=== PATIENT | female | born 1980 | race Caucasian/White ===

== ENCOUNTER 2020-06-05 13:34 | Outpatient (CLI) | payer OTHER, SELFPAY ==
--- NOTE | 2020-06-05 15:00 | NEURO_ITS ---
Impression: # Complains of 4th and 5th finger numbness bilaterally. # Normal nerve conduction study # No Carpal Tunnel Syndrome or ulnar neuropathy. # Normal needle/EMG exam. Nerve Conduction Studies Anti Sensory Summary Table Stim Site NR Peak (ms) P-T Amp (?V) Site1 Site2 Delta-P (ms) Dist (cm) Tres (m/s) Left Median Anti Sensory (2-3nd Digit) Wrist 2.7 84.9 Wrist 2-3nd Digit 2.7 14.0 52 Wrist 2.8 74.6 Wrist 2-3nd Digit 2.7 14.0 52 Right Median Anti Sensory (2-3nd Digit) Wrist 2.7 68.2 Wrist 2-3nd Digit 2.7 14.0 52 Wrist 2.6 37.6 Wrist 2-3nd Digit 2.7 14.0 52 Left Radial Anti Sensory (Base 1st Digit) Wrist 1.8 34.1 Wrist Base 1st Digit 1.8 0.0 Right Radial Anti Sensory (Base 1st Digit) Wrist 2.1 28.2 Wrist Base 1st Digit 2.1 0.0 Left Ulnar Anti Sensory (5th Digit) Wrist 2.1 78.9 Wrist 5th Digit 2.1 14.0 67 Right Ulnar Anti Sensory (5th Digit) Wrist 2.0 77.0 Wrist 5th Digit 2.0 14.0 70 Motor Summary Table Stim Site NR Onset (ms) O-P Amp (mV) Site1 Site2 Delta-0 (ms) Dist (cm) Tres (m/s) Left Median Motor (Abd Poll Brev) Wrist 2.4 10.2 Elbow Wrist 4.2 26.0 62 Elbow 6.6 4.3 Right Median Motor (Abd Poll Brev) Wrist 2.8 3.1 Elbow Wrist 4.5 28.0 62 Elbow 7.3 2.6 Left Ulnar Motor (Abd Dig Minimi) Wrist 2.0 6.8 A Elbow Wrist 4.4 29.0 66 A Elbow 6.4 6.6 Right Ulnar Motor (Abd Dig Minimi) Wrist 2.0 6.2 A Elbow Wrist 4.1 28.0 68 A Elbow 6.1 5.7 F Wave Studies NR F-Lat (ms) L-R F-Lat (ms) Left Median (Mrkrs) (Abd Poll Brev) 24.28 0.81 Right Median (Mrkrs) (Abd Poll Brev) 25.09 0.81 Left Ulnar (Mrkrs) (Abd Dig Min) 25.33 0.54 Right Ulnar (Mrkrs) (Abd Dig Min) 24.80 0.54 EMG Side Muscle Nerve Root Ins Act Fibs Amp Dur Recrt Comment Right 1stDorInt Ulnar C8-T1 Nml Nml Nml Nml Nml Right Ext Indicis Radial (Post Int) C7-8 Nml Nml Nml Nml Nml Right Ext Digitorum Radial (Post Int) C7-8 Nml Nml Nml Nml Nml Right BrachioRad Radial C5-6 Nml Nml Nml Nml Nml Right PronatorTeres Median C6-7 Nml Nml Nml Nml Nml Right Abd Poll Brev Median C8-T1 Nml Nml Nml Nml Nml Left 1stDorInt Ulnar C8-T1 Nml Nml Nml Nml Nml Left Ext Indicis Radial (Post Int) C7-8 Nml Nml Nml Nml Nml Left Ext Digitorum Radial (Post Int) C7-8 Nml Nml Nml Nml Nml Left BrachioRad Radial C5-6 Nml Nml Nml Nml Nml Left PronatorTeres Median C6-7 Nml Nml Nml Nml Nml Left Abd Poll Brev Median C8-T1 Nml Nml Nml Nml Nml MTDD
== END 2020-06-05 13:35 | disposition home or self-care (01) ==
LOC: ANHNEURO 13:35
PROVIDERS: PCP Family Medicine; Visit Provider Physician Assistant
DX: R20.0 Anesthesia of skin (principal)
CPT/HCPCS: 95886; 95911

== ENCOUNTER → 2021-03-08 08:17 | Outpatient (CLI) | payer OTHER, SELFPAY ==
[2021-03-08 20:23] LABS: SARS-CoV-2 RNA PCR Negative
[2021-03-10 00:38] LABS: Influenza A QL RT-PCR Negative (Negative); Influenza B QL RT-PCR Negative (Negative)
== END ==
PROVIDERS: PCP Family Medicine; Visit Provider Physician Assistant
DX: R05.9 Cough, unspecified (principal); R68.89 Other general symptoms and signs; Z20.822 Contact with and (suspected) exposure to COVID-19
CPT/HCPCS: 87502; C9803; U0003; U0005

== ENCOUNTER 2023-04-15 16:24 | Outpatient (CLI) | payer OTHER, SELFPAY ==
[2023-04-15 17:23] LABS: Influenza A QL RT-PCR Negative (Negative); Influenza B QL RT-PCR Negative (Negative); RSV RNA, RT-PCR Negative (Negative); SARS-CoV-2 RNA PCR Negative (Negative)
== END 2023-04-15 16:25 | disposition home or self-care (01) ==
LOC: ANHLAB 16:26
PROVIDERS: PCP Family Medicine; Visit Provider Family Medicine
DX: J06.9 Acute upper respiratory infection, unspecified (principal); Z20.822 Contact with and (suspected) exposure to COVID-19
CPT/HCPCS: 87637

== ENCOUNTER 2023-12-13 18:39 | Emergency (ER) | payer OTHER, SELFPAY ==
--- NOTE | ~2023-12-13 | XR_ITS ---
[id number] Ordering provider: Dipika Mejias APRN History: . fall, rib pain, posterior braline . Comparison: None. FINDINGS: BONES: No acute right rib fracture or fracture of the visualized osseous structures. LUNGS: No effusions or infiltrates. No pneumothorax. SOFT TISSUES: Normal. IMPRESSION: No right rib fracture . No acute cardiopulmonary pathology. Reviewed, dictated and finalized at location A.
[2023-12-13 18:56] VITALS: BP 139/92; PULSE 87; RESP 16; TEMP 36.6; O2SAT 99
--- NOTE | 2023-12-13 19:02 | ED_ITS ---
HPI - Fall General Chief Complaint: Back Pain/Injury Stated Complaint: right side pain Time Seen by Provider: 12/13/23 18:41 Source: patient Mode of arrival: ambulatory Limitations: no limitations History of Present Illness HPI Narrative: Patient is a 43-year-old female who presents with right side pain after falling in bathtub yesterday at 3:00 p.m.. Patient states pain is lateral side and radiates under right breast and behind right scapula. Denies any shortness of breath or bruising. Denies hitting her head on follow-up. Has applied ice and taken 800 mg of ibuprofen twice since occurrence. Related Data Allergies Allergy/AdvReac Type Severity Reaction Status Date / Time codeine AdvReac Unknown NAUSEA Verified 04/21/23 16:21 hydrocodone AdvReac Unknown NAUSEA Verified 04/21/23 16:21 Review of Systems Review of Systems: All systems reviewed & are unremarkable except as noted in HPI and below Constitutional: Constitutional: Denies body ache(s), Denies chills, Denies fatigue, Denies fever(s), Denies headache(s), Denies malaise and Denies weakness Eyes: Eyes: Denies blurry vision, Denies irritation and Denies loss of vision ENT: Denies otalgia, Denies headache(s), Denies nasal discharge, Denies sinus pain and Denies sore throat Cardiovascular: Cardiovascular: Denies chest pain, Denies irregular heart rhythm and Denies dyspnea Respiratory: Respiratory: Denies dyspnea Gastrointestinal: Gastrointestinal: Denies abdominal pain, Denies melena, Denies hematochezia, Denies diarrhea, Denies nausea and Denies vomiting Musculoskeletal: Musculoskeletal: Reports back pain, Denies myalgias and Denies arthralgias Integumentary/Breasts: Skin/Breast: Denies pruritus and Denies rash Neurologic: Denies headache(s), Denies loss of vision and Denies weakness Psychiatric: Psychiatric: Reports no additional psychiatric complaints Endocrine: Endocrine: Denies fatigue PMFSH Past Medical History Medical History Acrochordon Bug bite Enlarged lymph node Lipoma Numbness and tingling Wellness examination Surgical History Surgical History S/P hysterectomy Social History Social History Social History: Years smoked: 9 Smoking status: Former smoker Tobacco type: cigarettes and e-cigarettes/vaping Second hand tobacco smoke exposure: Yes Smoking end date: 12/16/13 Additional smoking assessment comments: Pt still vapes. Alcohol intake: current Drinks per week: 4 Alcohol use details: socially Substance use: never Substance use type: does not use Living arrangements: with family Occupation/Education: occupation Gender identity (if verbalized by the patient): Female Sexual Orientation (if Verbalized by the Patient): Straight or Heterosexual Comments At time of signature, agree with nursing past medical, surgical, social and family history. There is no relevant family history pertinent to the presenting complaint. Exam Const: General: cooperative, healthy appearing, comfortable, no acute distress and well nourished Nutritional Appearance: well nourished Orientati on/consciousness: patient oriented x3 Limitations: no limitations HENMT: Head: normal to inspection, normocephalic and atraumatic Ears: hearing grossly normal bilaterally and external ears normal Face/Nose/Sinus: Normal external nose present, normal facial exam and face symmetric Face and sinus: normal facial exam and face symmetric Mouth: Yes lip normal Eyes: General: appearance normal, both eyes and all related structures Alignment and Position: alignment normal and position normal Periorbital: periorbital findings normal Eyelids: eyelids normal Pupils: Equal, round and reactive pupils present EOM: EOMs intact bilaterally Neck: Neck: normal visual inspection, full ROM and supple Chest: Chest palpation & inspection: normal inspection of the chest and tenderness rib right mid-axillary line involving the 4th rib, involving the 5th rib and involving the 6th rib Resp: Effort & Inspection: normal respiratory effort and able to speak in complete sentences Auscultation: clear to auscultation bilaterally Cardio: Rate: regular rate Rhythm: regular rhythm Heart sounds: S1 normal heart sound present and S2 normal heart sound present GI: Inspection: normal to inspection Skin: General skin exam: normal color and no rashes or lesions noted Neuro: General: patient oriented x3 and moves all extremities Cranial nerves: Yes Equal, round and reactive pupils present Speech: normal speech Gait exam (Neuro): Normal gait present Extrem: General: normal to inspection, full ROM and no edema Psych: Appearance: grossly normal and well kempt Mental Status: mental status grossly normal Speech and movement: Normal speech and movement present Affect: normal affect Attitude: cooperative Thought process: Normal thought process present Course Course Emergency Course: Patient is aware of diagnosis, understands and agrees to treatment plan. Anticipatory guidance given. Patient agrees to follow-up as directed and is aware of reasons to seek care at the emergency department. Portions of this record may have been created with voice recognition software Level of Care: Express Care Visit Vital Signs Vital signs: Vital Signs Temperature 36.6 C 12/13/23 18:56 Pulse Rate 87 12/13/23 18:56 Respiratory Rate 16 12/13/23 18:56 Blood Pressure 139/92 H 12/13/23 18:56 Pulse Oximetry 99 12/13/23 18:56 Temperature 36.6 C 12/13/23 18:56 Pulse Rate 87 12/13/23 18:56 Respiratory Rate 16 12/13/23 18:56 Blood Pressure 139/92 H 12/13/23 18:56 Pulse Oximetry 99 12/13/23 18:56 Reviewed MDM - Fall MDM Narrative Medical decision making narrative: Exam findings show no acute concerns or changes; patient is non-toxic appearing and is in no distress.? Patient is appropriate for outpatient treatment and follow-up. Discharge instructions reviewed with patient, as well as provided in writing per nursing staff. The instructions also include specific and strict return/GO TO THE ER as well as f/u information. All questions have been answered, and the patient deny any further questions with discharge and discharge plan. Differential Diagnosis Differential diagnosis: Likely syncope and other (Rib fracture, contusion, muscle strain) Medical Records Attestation: I reviewed the patient's medical records. Imaging Data Radiologist's impression: [id number] Ordering provider: Dipika Mejias APRN History: . fall, rib pain, posterior braline . Comparison: None. FINDINGS: BONES: No acute right rib fracture or fracture of the visualized osseous structures. LUNGS: No effusions or infiltrates. No pneumothorax. SOFT TISSUES: Normal. IMPRESSION: No right rib fracture . No acute cardiopulmonary pathology. Discharge Plan Discharge Clinical Impression: Contusion of rib Qualifiers: Encounter type: initial encounter Laterality: right Qualified Code(s): S20.211A - Contusion of right front wall of thorax, initial encounter Patient Disposition: Home, Self-Care Condition: Stable Instructions: Rib Contusion (ED) Additional Instructions: X-ray shows no fractures Use muscle relaxers as needed, they will make you sleepy so do not drive Apply lidocaine patches 12 hours on and 12 hours off For pain, you may take: Tylenol 650-1000mg by mouth every 4-6 hours. Do not exceed 4000mg in 24 hours. Advil (Ibuprofen) 600 mg by mouth every 6 hours. Do not exceed 2400mg in 24 hours. 8 AM: Tylenol 11 AM: Ibuprofen 2 PM: Tylenol 5 PM: Ibuprofen 8 PM: Tylenol 11 PM: Ibuprofen 2 AM: Tylenol 5 AM: Ibuprofen Go to the ER if you have worsening pain or difficulty breathing Prescriptions: New baclofen 10 mg tablet 10 mg PO TID 5 Days Qty: 15 0RF lidocaine 5 % adhesive patch,medicated 1 patch topical DAILY Qty: 15 0RF Rx Instructions: leave on most painful area for up to 12 hrs Follow-up/Referrals: Genaro Hodges MD [Primary Care Provider] - 3 Days Stand Alone Forms: Work/School Release IP Time of Disposition: 20:01
== END 2023-12-13 20:07 | disposition home or self-care (01) ==
PROVIDERS: Emergency Provider Nurse Practitioner Family; PCP Family Medicine
DX: S20.211A Contusion of right front wall of thorax, initial encounter (principal); W18.2XXA Fall in (into) shower or empty bathtub, initial encounter
CPT/HCPCS: 71101; 99213; G0463

== ENCOUNTER 2024-02-02 09:15 | Outpatient (CLI) | payer OTHER, SELFPAY ==
--- NOTE | ~2024-02-02 | XR_ITS ---
Left Knee Technique: AP and lateral views were obtained. Clinical History: Pain Findings: No fracture or dislocation is seen. Osseous alignment is anatomic. Joint spaces are preserv ed without degenerative or erosive change. Soft tissues are unremarkable. No joint effusion is seen. Impression: Unremarkable left knee radiographs. Reviewed, dictated and finalized at [facility]. INAL DEFENSE ATTORNEY Impression: Unremarkable left knee radiographs.
--- NOTE | ~2024-02-02 | XR_ITS ---
XR shoulder LT min 2V 02/02/2024 09:42 INDICATION: Left shoulder pain PROCEDURE: 4 views left shoulder COMPARISON: 02/11/2005 FINDINGS: Fracture, dislocation or subluxation is not identified. The soft tissues appear within norm al limits. No foreign bodies are identified. IMPRESSION: 1: NO ACUTE BONE OR JOINT ABNORMALITY IDENTIFIED. Reviewed, dictated and finalized at location B. INE OPERATOR SLITTER TECHNICIAN
== END 2024-02-02 09:16 | disposition home or self-care (01) ==
PROVIDERS: PCP Family Medicine; Visit Provider Family Medicine
DX: M25.512 Pain in left shoulder (principal); M25.562 Pain in left knee
CPT/HCPCS: 73030; 73560

== ENCOUNTER 2024-04-19 09:04 | Outpatient (CLI) | payer OTHER, SELFPAY ==
--- NOTE | ~2024-04-19 | XR_ITS ---
XR chest 2V Ordering provider: Genaro Hodges MD History: 43 years Female with . R06.00 - Dyspnea, unspecified . Comparison: March 04, 2024 FINDINGS: MEDIASTINUM: The cardiac silhouette is not enlarged. LUNGS: No infiltrates, effusions or pneumothorax. OTHER: No free air under the diaphragm. IMPRESSION: No acute cardiopulmonary pathology. Reviewed, dictated and finalized at location A. PRESIDENT
--- OUTSIDE RECORDS SUMMARY | 2024-04-19 09:38 | XMS_ITS | Clinical Summary ---
Author Organization [facility] Address [address] [place] [id number] Care Team Providers Care Microsoft Dynamics Consultant Name Role Phone Unknown, Notinfile Primary Care Provider Unavail able Allergies No known active allergies Medications meloxicam (MOBIC) 15 mg tablet Take 15 mg by mouth daily Active Active Problems Problem Noted Date Diagnosed Date Papanicolaou smear of cervix with atypical squamous cells cannot exclude high grade squamous intraepithelial lesion (ASC-H) 04/29/2011 Abnormal cervical Papanicolaou smear 04/16/2011 Surgical History Surgery Date Site/Laterality Comments US ABDOMEN COMPLETE W LIVER DOPPLER (C) 04/13/2018 R ight HYSTERECTOMY CHOLECYSTECTOMY Medical History Medical History Date Comments Known health problems: none Family History Medical History Relation Name Comments Arthritis Father Diabetes Father Gout Father Arthritis Mother Relation Name Status Comments Father Mother Social History Tobacco Use Types Packs/Day Years Used Date Smoking Tobacco: Every Day Vaping Comments Unknown Sex and Gender Information Value Date Recorded Sex Assigned at Not on file Legal Sex Female 9:51 AM NOTEMAN Gender Identity Not on file Sexual Orientation Not on file 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 Not on file Not on file Not on file Obstetrics History Last Filed Vital Signs Vital Sign Reading Time Taken Comments Blood Pressure 125/82 04/13/2018 5:06 PM NOTEMAN Pulse 86 04/13/2018 5:06 PM NOTEMAN Temperature 36.8 C (98.2 F) 04/13/2018 5:06 PM NOTEMAN Respiratory Rate - - Oxygen Saturation 99% 04/13/2018 5:06 PM NOTEMAN Inhaled Oxygen Concentration - - Weight 99.3 kg (219 lb) 06/10/2021 1:10 PM CDT Height 162.6 cm (5' 4 ) 06/10/2021 1:10 PM CDT Body Mass Index 37.59 06/10/2021 1:10 PM CDT Plan of Treatment Health Maintenance Due Date Last Done Comments Breast Cancer Screening-Mammogram 1981 Depression Screening 1981 Hepatitis C Screening 1981 Pneumococcal vaccine <65 (1 of 2 - PCV) 11/15/1987 DTaP/Tdap/Td Vaccine (1 - Tdap) 1992 Varicella Vaccines (1 of 2 - 13+ 2-dose series) 1994 Hepatitis B Screening 11/15/1999 Regular Well Visit/Exam 18-64 11/15/1999 Covid-19 Vaccine (4 - 2023-2 5 season) 2023 01/25/2021, 04/29/2020, 03/31/2020 Influenza Vaccine (#1) 2023 HPV Vaccines Aged Out No longer eligi ble based on patient's age to complete this topic Insurance [facility] H[facility] Address: [facility] [address] [place], [place] [id number] [place] [address] [facility] H[facility]/PPO Address: [address] [address] [place] [address] [employer] COVENTRY HMO/POS Care Teams Microsoft Dynamics Consultant Relationship Specialty Start Date End Date Unknown, Notinfile PCP - General 04/21/21
--- OUTSIDE RECORDS SUMMARY | 2024-04-19 09:38 | XMS_ITS | Referral Summary ---
Author Organization [facility] Address [address] [place] [id number] Care Team Providers Care Organ Pipe Finisher Name Role Phone Unknown, Notinfile Primary Care Provider Unavail able Allergies No known active allergies Medications meloxicam (MOBIC) 15 mg tablet Take 15 mg by mouth daily Active Active Problems Problem Noted Date Diagnosed Date Papanicolaou smear of cervix with atypical squamous cells cannot exclude high grade squamous intraepithelial lesion (ASC-H) 04/29/2011 Abnormal cervical Papanicolaou smear 04/16/2011 Social History Tobacco Use Types Packs/Day Years Used Date Smoking Tobacco: Every Day Vaping Comments Unknown Sex and Gender Information Value Date Recorded Sex Assigned at Not on file Legal Sex Female 9:51 AM GATE SERVICES SUPERVISOR Gender Identity Not on file Sexual Orientation Not on file 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 Not on file Not on file Not on file Last Filed Vital Signs Vital Sign Reading Time Taken Comments Blood Pressure 125/82 04/13/2018 5:06 PM GATE SERVICES SUPERVISOR Pulse 86 04/13/2018 5:06 PM GATE SERVICES SUPERVISOR Temperature 36.8 C (98.2 F) 04/13/2018 5:06 PM GATE SERVICES SUPERVISOR Respiratory Rate - - Oxygen Saturation 99% 04/13/2018 5:06 PM GATE SERVICES SUPERVISOR Inhaled Oxygen Concentration - - Weight 99.3 kg (219 lb) 06/10/2021 1:10 PM CDT Height 162.6 cm (5' 4 ) 06/10/2021 1:10 PM CDT Body Mass Index 37.59 06/10/2021 1:10 PM CDT Plan of Treatment Not on file [place] [address] [facility] [place] [address] [place] [address] HMO/POS Care Teams Organ Pipe Finisher Relationship Specialty Start Date End Date Unknown, Notinfile PCP - General 04/21/21
[2024-04-19 10:03] LABS: Influenza A QL RT-PCR Negative (Negative); Influenza B QL RT-PCR Negative (Negative); RSV RNA, RT-PCR Negative (Negative); SARS-CoV-2 RNA PCR Negative (Negative)
== END 2024-04-19 09:05 | disposition home or self-care (01) ==
PROVIDERS: PCP Family Medicine; Visit Provider Family Medicine
DX: R50.9 Fever, unspecified (principal); R06.00 Dyspnea, unspecified
CPT/HCPCS: 71046; 87637